=== PATIENT | female | born 1950 | race Hispanic/Latino ===

== ENCOUNTER 2017-11-08 16:02 | Emergency (ER) | payer OTHER ==
[~2017-11-08 16:02] MED LIST: ALPR1TAB2 PO; DULO30CA2 PO; PREG50 PO
== END 2017-11-08 17:10 | disposition left against medical advice (07) ==
LOC: EDH 16:02
DX: Z53.21 Procedure and treatment not carried out due to patient leaving prior to being seen by health care provider (principal); M19.90 Unspecified osteoarthritis, unspecified site; M79.1 Myalgia; Z88.0 Allergy status to penicillin